=== PATIENT | male | born 1950 ===

== ENCOUNTER → 2023-08-01 | Outpatient (CLI) | payer MEDICARE, BC ==
[~2023-08-01] MED LIST: ASPI325 PO; ATOR10 PO; Aspir 8181 MG PO; BP; CENTRUM SILVER1 EAC2 PO; DOCSEN PO; FISH OIL 1,2001 EAC1 PO; FISH1000 PO; Flomax0.4 MG PO; GLUC500 PO; GLUCOSAMINE-CH1 EAC7 PO; IBUP400 PO; IBUP600 PO; KETO10 PO; LIPITOR; LISI20 PO; MORP30 PO; OCCUVITE PO; OPTIFLEX-C400 MG PO; PROC10 PO; PROSTATE HEALT1 EACH PO; Percocet 5-3251 EACH PO; TAMS.4ER PO; VITAMIN D-32000 UNIT PO
== END ==
LOC: LAB 17:44 → LAB SHORT 17:44
DX: L02.212 Cutaneous abscess of back [any part, except buttock and flank] (principal); L08.9 Local infection of the skin and subcutaneous tissue, unspecified
CPT/HCPCS: 87070; 87205

== ENCOUNTER 2025-06-16 12:29 | Day surgery (SDC) | payer MEDICARE, BC ==
[2025-06-16] VITALS (19 sets, daily range): BP systolic 108–159; BP diastolic 68–98
[~2025-06-16] VITALS: Ht 177.8 cm; Wt 103.6 kg
[2025-06-16] MEDS ORDERED: TAMS.4ER PO (13:47)
--- NOTE | 2025-06-16 14:00 | NUR ---
Ambulatory in Day Surgery History, Chart, Medications and Allergies reviewed before start of procedure. Pre-Op teaching done. Pt verbalizes understanding. Patient States Post-Procedure ride home has been arranged.
--- NOTE | 2025-06-16 15:07 | NUR ---
06/16/25 Sona Damon CONFIRMED AND REVIEWED H&P, MEDCICATIONS, ALLERGIES, MEDICAL HISTORY, RESPIRATORY HISTORY, VITAL SIGNS, 3-LEAD EKG, CONSENTS, AND PHYSICIAN ORDERS. PATIENT CONFIRMS NPO STATUS AND AGREES WITH SCHEDULED PROCEDURE. MONITOR INTACT WITH CONTINUOUS PULSE OXIMETRY, CAPNOGRAPHY, 3-LEAD EKG, INTERMITTENT BP. SUPPLEMENTAL O2 TO BE TITRATED THROUGHOUT PROCEDURE TO MAINTAIN O2 SATURATION ABOVE 90%. PATIENT DETERMINED TO BE ASA APPROPRIATE FOR PROPOFOL SEDATION PRIOR TO START OF PROCEDURE BY .MALLAMPATI CLASS 3 AIRWAY: VISUALIZATION OF ONLY THE BASE OF THE UVULA.
--- NOTE | 2025-06-16 15:45 | NUR ---
REPORT RECEIVED FROM MACEY SCHWAB. VSS. PT ON RA. PT A&OX4. PT ABLE TO REPOSITION SELF IN BED. PT REQUESTING PO FLUIDS AND TOLERATING THEM WELL. PT DENIES PAIN, NAUSEA OR OTHER DISCOMFORTS. PT SPOUSE AT BEDSIDE.
--- NOTE | 2025-06-16 15:59 | NUR ---
Patient up to Ambulate independently. Gait steady. VSS and consistent with pt baseline. Pt has no complaints and verbalizes readiness to go home. Discharge instructions reviewed with patient and his spouse. Patient verbalizes understanding. Copy given to patient to take home. Patient States Post-Procedure ride home has been arranged. Discharged via wheelchair to private car for ride home. Pt belongings returned to pt.
== END 2025-06-16 16:00 | disposition home or self-care (01) ==
LOC: ORSCMMR 12:29 → ORD 14:15 → ORSCMMR 14:15
PROVIDERS: Surgery
PROC: 0DJD8ZZ Inspection of Lower Intestinal Tract, Via Natural or Artificial Opening Endoscopic (ICD-10-PCS; principal; 2025-06-16 14:15)
DX: Z12.11 Encounter for screening for malignant neoplasm of colon (principal); Z86.0101 Personal history of adenomatous and serrated colon polyps; I10 Essential (primary) hypertension; E78.5 Hyperlipidemia, unspecified; K21.9 Gastro-esophageal reflux disease without esophagitis; Z79.82 Long term (current) use of aspirin; Z79.899 Other long term (current) drug therapy; Z87.891 Personal history of nicotine dependence
CPT/HCPCS: J2704; J7120